=== PATIENT | female | born 1965 | race Caucasian/White ===

== ENCOUNTER 2017-12-25 10:58 | Inpatient (IN) | payer OTHER, MEDICARE ==
[~2017-12-25] VITALS: Ht 162.6 cm; Wt 72.6 kg
[~2017-12-25 10:58] MED LIST: AMBIEN (MONOGRAP5 MG PO; ASPIRIN CHILDRE81 MG PO; ATORVASTATIN CA10 M1 PO; ATORVASTATIN CA10 MG PO; BENTYL10 M1 PO; DIFLUCAN150 M1 PO; DIFLUCAN150 MG PO; DILTIAZEM 24HR240 MG PO; DILTIAZEM HCL120 M2 PO; DOCUSATE SODIU100 MG PO; ESTRACE1 MG PO; FENOFIBRATE145 M1 PO; FISH OIL CONCEN1 SGL PO; HYDROMORPHONE HC2 MG PO; IBU800 MG PO; KEFLEX500 MG PO; LEVEMIR 10100 UNITS/ SC; LEVEMIR100 UNIT/1 SC; LIDOCAINE1 EACH TOP; LISINOPRIL-HCT1 EAC1 PO; LISINOPRIL-HYDR1 TA1 PO; LORAZEPAM1 MG PO; NAPROSYN 500 M500 MG PO; NOVOLIN R1000 UNIT2 SC; NOVOLOG100 U/ML SC; NOVOLOG100 UNIT/2 SC; OMEGA-3 300 MG-1 SGL PO; OXYCODONE5 M1 PO; PERCOCET 325 MG1 TA2 PO; PERCOCET 325 MG1 TAB PO; PERCOCET 5-3251 EACH PO; PROAIR HFA8.5 GM INH; PROVENTIL INHALER INH; SOMA 350MG TAB350 MG PO; TRAMADOL50 MG PO; TRICOR 145 MG145 MG PO; VALIUM 10 MG. T10 MG PO; VALIUM5 M1 PO; VANCOMYCIN 11000 MG IV; ZOFRAN ODT4 M1 SL
[2017-12-25 13:06] LABS: ABSOLUTE BASOPHIL COUNT 0.1 /CUMM (0.0-0.2); ABSOLUTE EOSINOPHIL COUNT 0.2 /CUMM (0.0-0.7); ABSOLUTE GRANULOCYTE CT 21.1 /CUMM (1.4-6.5); ABSOLUTE LYMPH COUNT 2.8 /CUMM (1.2-3.4); ABSOLUTE MONOCYTE COUNT 1.2 /CUMM (0.10-0.60); BASOPHIL % 0.2 % (0.0-2.0); EOSINOPHIL % 0.7 % (0-5); GRANULOCYTE % 83.2 % (42.2-75.2); HEMATOCRIT 35.8 % (37-47); MEAN CORPUSCULAR HGB 30.2 PG (27.0-31.0); MEAN CORPUSCULAR HGB CONC 34.6 G/DL (33.0-37.0); MEAN CORPUSCULAR VOLUME 87.3 FL (81.0-99.0); PLATELET COUNT 513 /CUMM (130-400); RBC DISTRIBUTION WIDTH 12.5 % (11.5-14.5); WHITE BLOOD CELL COUNT 25.4 /CUMM (4.8-10.8)
--- NOTE | 2017-12-25 15:45 | CT SCAN REPORT ---
CT NECK WITH CONTRAST CLINICAL INFORMATION: Left jaw and neck swelling. Tenderness to palpation. COMPARISON: None available. TECHNIQUE: Multidetector CT acquisition of the neck was obtained following the administration of 95 mL of Optiray 320 intravenous contrast without complication. Multiplanar reformats were acquired and utilized for image interpretation. FINDINGS: Infiltration of the fat of the left perimaxillary, left perimandibular, and submental soft tissues compatible with cellulitis. There are no discrete fluid collections to suggest abscess. There are a few focal areas of skin thickening within the left face on image 33 of series 4 and the skin overlying the left mandible on image 49 of series 4 that can be correlated with direct visual inspection for a source of infection. Nonpathologic size criteria lymph nodes within the suprahyoid and infrahyoid neck. The parotid glands are homogeneous in attenuation. The submandibular glands are normal. The thyroid gland is normal. No contour abnormality or pathologic enhancement is seen within the oral cavity or pharyngeal mucosal space. No retropharyngeal fluid collection is seen. The laryngeal structures are normal. The parapharyngeal fat is preserved. The carotid sheath vasculature opacify normally. The superior mediastinum is unremarkable. The lung apices are clear. The mastoid air cells and visualized portions of the paranasal sinuses are well-aerated. Postoperative changes following ACDF at the C4-C7 levels. Multilevel hypertrophic facet arthropathy. Congenital T3-T4 fusion. The imaged portions of the brain parenchyma are unremarkable. IMPRESSION: Imaging findings compatible with left perimaxillary, left perimandibular, and submental cellulitis. There are no discrete fluid collections to suggest abscess. There are a few focal areas of skin thickening within the left face on image 33 of series 4 and the skin overlying the left mandible on image 49 of series 4 that can be correlated with direct visual inspection for a source of infection.
--- NOTE | 2017-12-25 15:57 | ED GENERAL ADULT ---
History of Present Illness General Chief Complaint: General Adult Stated Complaint: FACIAL SWELLING Source: patient Exam Limitations: no limitations Vital Signs & Intake/Output Vital Signs & Intake/Output Vital Signs Date Time Temp Pulse Resp B/P B/P Pulse O2 O2 Flow FiO2 Mean Ox Delivery Rate 12/25 2212 98.3 81 22 144/86 100 Room Air 12/25 2133 100 Room Air 12/25 1907 99.8 76 20 140/80 100 Room Air 12/25 1610 78 18 133/81 99 Room Air 12/25 1551 Room Air 12/25 1102 98.6 95 18 115/71 98 Room Air Allergies Coded Allergies: codeine (Severe, ANAPHYLAXIS 05/08/17) morphine (Severe, ANAPHYLAXIS 05/08/17) Reconcile Medications Albuterol Sulfate (Proair Hfa) 90 MCG HFA.AER.AD 2 PUF INH Q4-6 PRN PRN SHORTNESS OF BREATH (Reported) Atorvastatin Calcium 10 MG TABLET 1 TAB PO 1700 CHOLESTEROL (Reported) Dicyclomine Hydrochloride (Bentyl) 10 MG CAPSULE 1 CAP PO TID PRN abdominal pain Diltiazem HCl (Diltiazem 24HR ER) 240 MG CAP.ER.24H 1 CAP PO DAILY HEART ( Reported) Estradiol (Estrace) 1 MG TABLET 1 TAB PO DAILY HRT (Reported) Fenofibrate Nanocrystallized (Fenofibrate) 145 MG TABLET 1 TAB PO DAILY LIPIDS (Reported) Fluconazole (Diflucan) 150 MG TABLET 1 TAB PO ONCE CANDIDIASIS Insulin Aspart (Novolog) (Unknown Strength) VIAL (Unknown Dose) SC TIDAC DIABETES (Reported) Insulin Detemir (Levemir) 100 UNIT/ML VIAL 20 UNITS SC QPM DIABETES (Reported ) Lidocaine 5 % ADH..PATCH 1 PAT TOP DAILY PAIN (Reported) Lisinopril/Hydrochlorothiazide (Lisinopril-Hctz 20-25 MG Tab) 20 MG-25 MG TABLET 1 TAB PO DAILY BP (Reported) Ondansetron (Zofran Odt) 4 MG TAB.RAPDIS 1 TAB SL TID PRN nausea Ondansetron (Zofran Odt) 4 MG TAB.RAPDIS 1 TAB SL TID PRN nausea Oxycodone HCl/Acetaminophen (Percocet 5-325 MG Tablet) 5 MG-325 MG TABLET 1 TAB PO BID PRN headache Triage Note: 52 YO FEMALE TO TRIAGE FOR EVAL OF L SIDED FACIAL SWELLING. REPORTS "I GET FREQUENT STAFF INFECTIONS" DENIES ANY PAIN INSIDE MOUTH/TEETH. REPORTS HAS BEEN SWOLLEN X2 DAYS. AFEBRILE Triage Nurses Notes Reviewed? yes HPI: This is a 52-year-old female with history of insulin controlled diabetes, obesity, hypertension, hepatitis C, cervical cancer status post atherectomy, asthma, presenting the emergency department with 1 day of left-sided facial swelling. Patient states she has had similar swelling in the past and it has been attributed to staph infection. She complains of severe pain in the left side of her cheek and left lower jaw. She denies any intraoral lesions or in. She endorses loss of appetite and nausea without vomiting. She has had no fever. She denies shortness of breath or difficulty swallowing or managing her airway. She had labs prior my evaluation was found to have significant leukocytosis. Also underwent CT neck which showed cellulitis but no obvious drainable collection. Past History Travel History Traveled to [place] past 21 day No Medical History Any Pertinent Medical History? see below for history Neurological: NONE EENT: NONE Cardiovascular: hypertension, NSTEMI Respiratory: asthma, SLEEP APNEA Gastrointestinal: NONE Hepatic: hepatitis C Renal: NONE Musculoskeletal: chronic back pain, S/P LAMINECTOMY LYMPHEDEMA Psychiatric: NONE Endocrine: diabetes Blood Disorders: NONE Cancer(s): cervical cancer, hodgkins lymphoma, vaginal cancer FIRST AID DIRECTOR/Reproductive: NONE History of MRSA: No History of VRE: No History of CDIFF: No Surgical History Surgical History: cholecystectomy Psychosocial History Who do you live with Mother Services at Home None What is your primary language Macanese Tobacco Use: Never used Family History Family History, If Any: Relation not specified for: FH: heart attack Hx Contributory? No Review of Systems Review of Systems Constitutional: Reports: malaise. EENTM: Reports: see HPI. Respiratory: Reports: no symptoms. Cardiovascular: Reports: no symptoms. GI: Reports: nausea. Genitourinary: Reports: no symptoms. Musculoskeletal: Reports: no symptoms. Skin: Reports: see HPI. Neurological/Psychological: Reports: no symptoms. Hematologic/Endocrine: Reports: no symptoms. Physical Exam Physical Exam General Appearance: well developed/nourished, no apparent distress, anxious Eyes: Bilateral: normal appearance. Ears, Nose, Throat: normal pharynx, normal ENT inspection Neck: normal inspection, supple, full range of motion Respiratory: normal breath sounds, chest non-tender, no respiratory distress Cardiovascular: regular rate/rhythm Gastrointestinal: normal bowel sounds, soft, non-tender Back: normal inspection, normal range of motion Extremities: normal inspection, normal capillary refill, normal range of motion, no edema Neurologic/Psych: no motor/sensory deficits, awake, alert, oriented x 3 Skin: rash Comments: Patient with significant swelling and tenderness to the left lower cheek, pain also to left submandibular area. No intraoral lesions or abscesses noted. Airways clear. Core Measures ACS in differential dx? No CVA/TIA Diagnosis: No Sepsis Present: No Sepsis Focused Exam Completed? No Progress Differential Diagnoses I considered the following diagnoses in my evaluation of the patient: Appears to be cellulitis, could be secondary to staph or strep first other microbiologic agent. Low suspicion for acute abscess given negative CT scan. Some concern for systemic inflammatory response although no vital sign changes at this time. Low suspicion for acute allergic reaction. No metabolic derangement on labs apart from hyperglycemia. Plan of Care: Orders Procedure Date/time Status Full Liquid Diet 12/26 B Active CBC WITHOUT DIFFERENTIAL 12/26 0600 Active BASIC ELECTROLYTES PLUS BUN&CR 12/26 0600 Active Weight 12/25 2114 Active Vital Signs 12/25 2114 Active Teach/Educate 12/25 2114 Active Pain Treatment and Response 12/25 2114 Active Nutritional Intake, Monitor 12/25 2114 Active Isolation 12/25 2114 Active Intake & Output 12/25 2114 Active Patient Care Conference 12/25 2114 Active Activity/Ambulation 12/25 2114 Active ACTIVE SURVEILLANCE NARES 12/25 2050 Active Pathway - chart 12/25 1806 Active Pathway - chart 12/25 1735 Active Patient Data 12/25 1657 Active Admit to inpatient 12/25 1634 Active Code Status 12/25 1634 Active Intake & Output 12/25 1551 Active FingerStick- Glucose 12/25 1249 Active BLOOD CULTURE 12/25 1249 Active COMPREHENSIVE METABOLIC PANEL 12/25 1249 Complete CBC WITHOUT DIFFERENTIAL 12/25 1249 Complete House Staff 12/25 UNK Active VTE Mechanical Prophylaxis 12/25 UNK Active Vital Signs 12/25 UNK Active Current Medications Sig/Cindy Start time Last Medication Dose Stop Time Status Admin Atorvastatin Calcium 10 MG 1700 12/26 1700 AC (Lipitor) Enoxaparin Sodium 40 MG DAILY 12/26 0900 AC (Lovenox) Estradiol 1 MG DAILY 12/26 0900 AC (Estrace) Fenofibrate 145 MG DAILY 12/26 0900 AC (Tricor) Insulin Aspart 0 TIDAC 12/26 0800 AC (NovoLOG) Ampicillin Sodium/ 1,500 MG Q6 12/26 0600 AC Sulbactam Sodium (Unasyn) Sodium Chloride 100 ML (Normal Saline 0.9%) Acetaminophen 1,000 MG Q6P PRN 12/25 2245 AC (Ofirmev) N/A 1 UNIT (No Carrier) Hydromorphone HCl 0.4 MG Q4P PRN 12/253 AC 12/25 (Dilaudid) 225 Gabapentin 300 MG QPM 12/25 2099 AC 12/25 (Neurontin) 2116 Insulin Detemir 20 UNITS QPM 12/25 2099 AC 12/25 (Levemir) 2116 Diltiazem HCl 240 MG DAILY 12/25 175 AC 12/25 (Cardizem CD) 2116 Laboratory Tests 12/25/17 1257: Anion Gap 12, Estimated GFR > 60, BUN/Creatinine Ratio 21.4, Glucose 451 H, Calcium 9.7, Total Bilirubin 0.2, AST 12 L, ALT 24, Alkaline Phosphatase 79, Total Protein 6.4, Albumin 4.0, Globulin 2.4, Albumin/Globulin Ratio 1.7, CBC w Diff MAN DIFF ORDERED, RBC 4.10 L, MCV 87.3, MCH 30.2, MCHC 34.6, RDW 12.5, MPV 7.0 L, Gran % 83.2 H, Lymphocytes % 11.1 L, Monocytes % 4.8, Eosinophils % 0.7, Basophils % 0.2, Absolute Granulocytes 21.1 H, Absolute Lymphocytes 2.8, Absolute Monocytes 1.2 H, Absolute Eosinophils 0.2, Absolute Basophils 0.1, Platelet Estimate VERIFIED BY SMEAR, Anisocytosis 1+ Microbiology 12/25 2300 UPPER RESP: Surveillance Culture - RECD 12/25 1304 BLOOD: Blood Culture - RECD 12/25 1257 BLOOD: Blood Culture - RECD Given the patient is insulin-dependent diabetic, has significant leukocytosis and difficulty tolerating p.o., will start IV antibiotics, admit to inpatient side. We will treat pain and administer IV fluids as well. Initial ED EKG: none Departure Departure Time of Disposition: 1640 Disposition: STILL A PATIENT Condition: Stable Clinical Impression Primary Impression: Facial cellulitis Referrals: Patient Has No Primary Care Dr (PCP/Family) Departure Forms: Customer Survey General Discharge Information Admission Note Spoke With: Hunter Carrera MD Documentation of Exam: Documentation of any treatments & extenuating circumstances including Concerns Regarding Discharge (functional status, medication knowledge or non-compliance, living conditions, etc.) that warrant an admission rather than observation: Patient will require IV antibiotics for significant facial cellulitis in setting of insulin-dependent diabetes. Will also require IV hydration, given poor p.o. intake. Not amenable to p.o. antibiotics at this time. Will need advancement of diet while inpatient. Will also need control of hyperglycemia. Critical Care Note Critical Care Note Critical Care Time: non-applicable ED Attending Observation Initial Observation Note: I have seen and personally examined CAROLIN JAY on 12/25/17 at 1642. I agree with the current emergency department documentation. The disposition (admission or discharge) is uncertain at this time, she needs a period of observation for the following reason(s): The ED Nurse caring for this patient has been personally informed as to what the patient is being observed for.
--- NOTE | 2017-12-25 17:01 | History & Physical ---
See Addendum Paul Vivas 12/25/17 1701: General Information and HPI MD Statement: I have seen and personally examined CAROLIN JAY and documented this H&P. The patient is a 52 year old F who presented with a patient stated chief complaint of facial swelling. Source of Information: patient Exam Limitations: no limitations History of Present Illness: 52-year old female with history of insulin controlled diabetes, obesity, hypertension, hepatitis C, cervical cancer status post hysterectomy, asthma who presents the emergency department with 1 day of left-sided facial swelling. Patient says she previous incidences of swelling to the infections like this over the past half year, including on her face and in her armpit. She denies any lesions inside her mouth or inside her ear. Also appetite and nausea with no vomiting. She has no history of fever with this presumed infection. On laboratory evaluation she was found to have significant leukocytosis. A CT neck showed a non-drainable cellulitis. Allergies/Medications Allergies: Coded Allergies: codeine (Severe, ANAPHYLAXIS 05/08/17) morphine (Severe, ANAPHYLAXIS 05/08/17) Compliance With Home Meds: GOOD Past History Travel History Traveled to [place] past 21 day No Medical History Neurological: NONE EENT: NONE Cardiovascular: hypertension, NSTEMI Respiratory: asthma, SLEEP APNEA Gastrointestinal: NONE Hepatic: hepatitis C Renal: NONE Musculoskeletal: chronic back pain, S/P LAMINECTOMY LYMPHEDEMA Psychiatric: NONE Endocrine: diabetes Blood Disorders: NONE Cancer(s): cervical cancer, hodgkins lymphoma, vaginal cancer EMT I/99/Reproductive: NONE History of MRSA: No History of VRE: No History of CDIFF: No Surgical History Surgical History: cholecystectomy Past Family/Social History Family History Relations & Conditions if any Relation not specified for: FH: heart attack Psychosocial History Services at Home: None Review of Systems Review of Systems Constitutional: Reports: no symptoms. EENTM: Reports: ear pain ("fullness"). Skin: Reports: erythema (left cheek), lumps. Exam & Diagnostic Data Last 24 Hrs of Vital Signs/I&O Vital Signs Date Time Temp Pulse Resp B/P B/P Pulse O2 O2 Flow FiO2 Mean Ox Delivery Rate 12/25 1907 99.8 76 20 140/80 100 Room Air 12/25 1610 78 18 133/81 99 Room Air 12/25 1551 Room Air 12/25 1102 98.6 95 18 115/71 98 Room Air Intake & Output 12/25 1600 / 0800 12/25 0000 Intake Total Output Total Balance Patient 160 lb Weight Weight Reported by Patient Measurement Method Physical Exam General Appearance Alert, Oriented X3, Cooperative, Moderate Distress Skin No Rashes, No Breakdown, erythema on left cheek/mandible Skin Temp/Moisture Exam: Warm/Dry HEENT PERRLA, EOMI, left side of face visibly enlarged Neck No JVD, No thryomegaly, tender to palpation Lymphatic Cervical nl Cardiovascular Regular Rate, Normal S1, Normal S2, No Murmurs Lungs Clear to Auscultation, Normal Air Movement Abdomen Soft, No Tenderness, No Hepatospenomegaly Neurological Normal Speech (dysarthric speech), Normal Tone, Sensation Intact Extremities No Clubbing, No Cyanosis, No Edema, Normal Pulses Assessment/Plan Assessment: 52-year-old female with history of insulin controlled diabetes, obesity, hypertension, hepatitis C, cervical cancer status post hysterectomy, asthma presenting to the emergency department with left-sided facial swelling. Problem list/plan: Left-sided facial swelling -Start antibiotics - Unasyn, Vancomycin -control pain per protocol Chronic conditions (Asthma, back pain, htn, hep c) -contintue home medications As Ranked By This Provider Problem List: 1. Facial cellulitis Core Measures/Misc (02/26) Acute Coronary Syndrome ACS Diagnosis: No Congestive Heart Failure Congestive Heart Failure Diagnosis No Cerebrovascular Accident CVA/TIA Diagnosis: No VTE (View Protocol) VTE Risk Factors Cancer/chemo/othr therapy No Mechanical VTE Prophylaxis d/t N/A MechProphylax Ordered No VTE Pharm Prophylaxis d/t NA PharmProphylax ordered Sepsis (View protocol) Sepsis Present: No If YES complete Sepsis Event Note If YES complete Sepsis Event Note Chris Miller 12/25/17 2019: General Information and HPI Allergies/Medications Home Med list Albuterol Sulfate (Proair Hfa) 90 MCG HFA.AER.AD 2 PUF INH Q4-6 PRN PRN SHORTNESS OF BREATH (Reported) Atorvastatin Calcium 10 MG TABLET 1 TAB PO 1700 CHOLESTEROL (Reported) Dicyclomine Hydrochloride (Bentyl) 10 MG CAPSULE 1 CAP PO TID PRN abdominal pain Diltiazem HCl (Diltiazem 24HR ER) 240 MG CAP.ER.24H 1 CAP PO DAILY HEART ( Reported) Estradiol (Estrace) 1 MG TABLET 1 TAB PO DAILY HRT (Reported) Fenofibrate Nanocrystallized (Fenofibrate) 145 MG TABLET 1 TAB PO DAILY LIPIDS (Reported) Fluconazole (Diflucan) 150 MG TABLET 1 TAB PO ONCE CANDIDIASIS Insulin Aspart (Novolog) (Unknown Strength) VIAL (Unknown Dose) SC TIDAC DIABETES (Reported) Insulin Detemir (Levemir) 100 UNIT/ML VIAL 20 UNITS SC QPM DIABETES (Reported ) Lidocaine 5 % ADH..PATCH 1 PAT TOP DAILY PAIN (Reported) Lisinopril/Hydrochlorothiazide (Lisinopril-Hctz 20-25 MG Tab) 20 MG-25 MG TABLET 1 TAB PO DAILY BP (Reported) Ondansetron (Zofran Odt) 4 MG TAB.RAPDIS 1 TAB SL TID PRN nausea Ondansetron (Zofran Odt) 4 MG TAB.RAPDIS 1 TAB SL TID PRN nausea Oxycodone HCl/Acetaminophen (Percocet 5-325 MG Tablet) 5 MG-325 MG TABLET 1 TAB PO BID PRN headache Core Measures/Misc (02/26) Sepsis (View protocol) If YES complete Sepsis Event Note If YES complete Sepsis Event Note Resident Review Statement Resident Statement: examined this patient, discussed with director internal control, agreed with director internal control, reviewed EMR data (avail) Other Findings: 52-year-old woman past medical history significant for chronic neck shoulder and lower back pain, anterior cervical discectomy discectomy 2012 with hardware and fusion, hypertension, history of lymphoma, cervical or vaginal cancer status post hysterectomy 2005 with chemo and radiation, insulin-dependent diabetes mellitus, history of gallstone pancreatitis, history of hepatitis A and hepatitis C and anxiety coming in for evaluation of left facial swelling of one day duration. Patient has had multiple recurrent abscesses that were mostly treated at [facility]. She states that she always grew staph and not MRSA. Her most recent episode was about a month ago which was over her left eye which has resolved completely at this time. Review of systems pertinent for left ear fullness, difficulty opening mouth completely and eating solids. Denies any fever, chills, chest pain, shortness of breath, eye pain, recent tooth infection, any discharge from swelling. Vitals afebrile, blood pressure 140 x 80, 99% on room air. Examination pertinent for left sided cheek swelling with no discharge in the inside of the mouth noted however patient was not able to open the mouth completely. Rest of examination was unremarkable. Labs significant leukocytosis with left shift, chronic hyponatremia, CT scan of neck with IV contrast significant for left perimaxillary, left perimandibular, and submental cellulitis. No discrete fluid collections to suggest abscess. Problem list: Left facial cellulitis Chronic back pain Hypertension Insulin-dependent diabetes mellitus Plan: Admit to general medicine floor, vitals per protocol Was given IV Clindamycin,given history of I&D of her abcess, will cover for MRSA with one-time of vancomycin, follow-up nasal surveillance for MRSA We will continue broad coverage with IV Unasyn tomorrow, ID consult in a.m. Please obtain records from [facility] specifically if there is any organisms that were grown for micro Accu-Cheks, basal insulin, NovoLog sliding scale Continue home meds pending how she swallows Unable to check [place] as website is down DVT prophylaxis with Lovenox Full liquid diet for now Full code Debi PARRA,Hunter 12/25/17 2322: Core Measures/Misc (02/26) Sepsis (View protocol) If YES complete Sepsis Event Note If YES complete Sepsis Event Note Attending MD Review Statement Attending Statement Attending MD Statement: examined this patient, discuss w/resident/PA/COMMERCIAL FINANCE ANALYST, agreed w/resident/PA/COMMERCIAL FINANCE ANALYST, discussed with family, discussed with nursing, reviewed images , amended to note Attending Assessment/Plan: The patient was seen and discussed with house staff, nursing and case management. She is a 52 yo female withh/o DM2, obesity, HTN, hepatitis C. She began noticin facial of ther right foot. She stated she had very recently been admitted to [facility]. She noted significant increase inhome so I can call. Impresion: #Pneumonia- patient is doing wwll today. Plan: Continue to monitor on Tele todayand increased Neck: supple Ext: no edema or tenderness Neuro: generallized weakness. Labs/tests:
[2017-12-25] MEDS ORDERED: LEVEMIR100 UNIT/1 SC (18:01)
[2017-12-25 19:07] VITALS: BP 140/80
[2017-12-25 22:12] VITALS: BP 144/86
--- NOTE | 2017-12-25 23:54 | Admission Certification ---
Admission Certification Certification Statement - As attending physician, I certify that at the time of - admission, based on clinical presentation, severity of - symptoms, need for further diagnostic testing and - therapeutic interventions, and risk of adverse outcomes - without in-hospital treatment, in my clinical assessment, - this patient requires an acute hospital stay for a minimum - of two nights or longer. I have also considered psychsocial - factors such as support system, advanced age, financial - issues, cognitive issues, and failed out-patient treatments, - past re-admission history, safety of patient, and lack of - compliance as applicable. Specific rationale supporting this admission is: The patient presents with left facial/neck swelling and tenderness c/w cellulitis (?staph). Needs admission for IV antibiotics and close follow-up. If develops abscess may need drainage.
[2017-12-26 03:10] VITALS: BP 122/78
[2017-12-26 06:59] VITALS: BP 116/66
--- NOTE | 2017-12-26 07:16 | PN- Housestaff ---
Paul Vivas 12/26/17 0716: Subjective Follow-up For: Facial swelling and pain Complaints: pain scale (0-10) (8/10) Subjective: Patient was seen and examined at the bedside. Patient states that she had increasing pain overnight, including pain directed into her left ear which awoke her from sleep at 3 AM. Patient states she feels like the swelling and pain has progressed and gotten worse since yesterday. Was insistent on showing pictures of prior infections face. Denied shortness of breath, chest pains, abdominal pain, fever, chills, sweats. Review of Systems Constitutional: Denies: chills, diaphoresis, fever, unexplained weight loss. EENTM: Reports: see HPI, ear pain, ear redness, throat swelling, mouth pain. Cardiovascular: Reports: no symptoms. Respiratory: Reports: no symptoms. Gastrointestinal: Reports: no symptoms. Musculoskeletal: Reports: no symptoms. Skin: Reports: see HPI, change in skin color, erythema. Neurological/Psychological: Reports: no symptoms. Objective Last 24 Hrs of Vital Signs/I&O Vital Signs Date Time Temp Pulse Resp B/P B/P Pulse O2 O2 Flow FiO2 Mean Ox Delivery Rate 12/26 1459 99.1 85 20 144/84 98 Room Air 12/26 0659 99.4 75 20 116/66 97 Room Air 12/26 0310 99.0 77 20 122/78 98 Room Air 12/25 2212 98.3 81 22 144/86 100 Room Air 12/25 2133 100 Room Air Intake & Output 12/26 1600 12/26 0800 12/26 0000 Intake Total 1750 600 480 Output Total Balance 1750 600 480 Intake, IV 250 120 Intake, Oral 1500 480 480 Patient 160 lb Weight Weight Reported by Patient Measurement Method Physical Exam General Appearance: Alert, Oriented X3, Cooperative, Moderate Distress Skin: erythematous swelling on left cheek Skin Temp/Moisture Exam: Warm/Dry HEENT: PERRLA, EOMI, red, swollen cheek on left side of face; apparent "pimple" deena on chin Neck: Supple, unable to assess left side due to patient's pain Lymphatic: Axillary nl, Cervical nl Cardiovascular: Regular Rate, Normal S1, Normal S2, No Murmurs Lungs: Clear to Auscultation, Normal Air Movement Abdomen: Soft, No Tenderness, No Hepatospenomegaly Neurological: dysarthric speech due to mass effect Extremities: No Clubbing, No Cyanosis, No Edema Current Medications: Current Medications Sig/Cindy Start time Last Medication Dose Route Stop Time Status Admin Acetaminophen 1,000 MG Q6P PRN 12/25 2245 AC 12/26 N/A 1 UNIT IV 1703 Acetaminophen 1,000 MG ONCE ONE 12/25 2045 DC 12/25 N/A 1 UNIT IV 12/25 2059 2241 Ampicillin Sodium/ 1,500 MG Q6 12/26 0600 DC 12/26 Sulbactam Sodium IV 0527 Sodium Chloride 100 ML Atorvastatin Calcium 10 MG 1700 12/26 1700 AC 12/26 PO 1703 Clindamycin 600 MG IQ8 12/26 1600 AC 12/26 Dextrose/Water 50 ML IV 1704 Diltiazem HCl 240 MG DAILY 12/25 1759 AC 12/26 PO 0840 Enoxaparin Sodium 40 MG DAILY 12/26 0900 AC 12/26 SC 0840 Estradiol 1 MG DAILY 12/26 0900 AC 12/26 PO 0840 Fenofibrate 145 MG DAILY 12/26 0900 AC 12/26 PO 0840 Gabapentin 300 MG QPM 12/25 2100 12/25 PO 2117 Hydromorphone HCl 1 MG ONCE ONE 12/26 1045 DC 12/26 IV 12/26 1046 1131 Hydromorphone HCl 0.4 MG ONCE ONE 12/26 0545 DC 12/26 IV 12/26 0546 0605 Hydromorphone HCl 0.4 MG Q4P PRN 12/25 2223 AC 12/26 IV 1820 Hydromorphone HCl 0.5 MG Q5 PRN 12/25 1815 DC 12/25 IV 1905 Insulin Aspart 0 TIDAC 12/26 0800 AC 12/26 SC 1349 Insulin Detemir 20 UNITS QPM 12/25 2100 12/25 SC 2117 Lactobacillus 1 CAP BID 12/26 1038 AC 12/26 Acidophilus PO 1349 Melatonin 5 MG AT BEDTIME NEED.. 12/26 0915 AC PO Melatonin 5 MG ONCE ONE 12/26 0600 DC PO 12/26 0601 Patient Medication 1 ED ONE ONE 12/26 1715 DC 12/26 Teaching ED 12/26 1716 1723 Vancomycin HCl 1,000 MG Q12 12/26 2200 Sodium Chloride 250 ML IV Vancomycin HCl 1,000 MG ONCE ONE 12/26 1145 DC 12/26 Sodium Chloride 250 ML IV 12/26 1244 1349 Last 24 Hrs of Lab/Jj Results Last 24 Hrs of Labs/Mics: Laboratory Tests 12/26/17 0641: Anion Gap 10, Estimated GFR > 60, BUN/Creatinine Ratio 20.0, Hemoglobin A1c 9.6 H, CBC w Diff NO MAN DIFF REQ, RBC 3.65 L, MCV 88.4, MCH 29.8, MCHC 33.7, RDW 12.9, MPV 7.3 L, Gran % 70.5, Lymphocytes % 20.4 L, Monocytes % 6.2, Eosinophils % 2.4, Basophils % 0.5, Absolute Granulocytes 13.1 H, Absolute Lymphocytes 3.8 H, Absolute Monocytes 1.2 H, Absolute Eosinophils 0.4, Absolute Basophils 0.1 Microbiology 12/25 2300 UPPER RESP: Surveillance Culture - RECD Orders Radiology Findings: Head/neck CT w/ contrast showed worsening left facial cellulitis, more prominent soft tissue thickening invovling left gingival buccal mucosa that may reflect developing phlegmon without a drainable abscess. Assessment/Plan Assessment: 52-year old female with history of insulin controlled diabetes, obesity, hypertension, hepatitis C, cervical cancer status post hysterectomy, asthma who presents the emergency department with 1 day of left-sided facial swelling. Plan/problem list: Facial/neck cellulitis Hypertension DM 2 Hyperlipidemia COPD DVT prophylaxis: Subcu heparin ALPS Full liquid diet, no diabetic add-ons Patient is full code Problem List: 1. Facial cellulitis 2. Diabetes Pain Ratin Pain Location: 10 Pain Goal: Pain 4 or less Pain Plan: Dilaudid Tomorrow's Labs & Rationales: cbc, bep to follow infection ChidiJonathan 12/26/17 1306: Attending MD Review Statement Attending Statement Attending MD Statement: examined this patient, discuss w/resident/PA/WEB ENGINEER, agreed w/resident/PA/WEB ENGINEER, discussed with family, reviewed EMR data (avail), discussed with nursing, discussed with case mgmt, reviewed images, amended to note Attending Assessment/Plan: Patient admitted here with facial cellulitis and neck cellulitis. Initial CT neck did not show evidence of abscess or drainable collection. Patient received vancomycin , clindamycin in ER. Patient with worsening of facial cellultiis. Repeat CT scan obtained which is suggestive of worsening cellulitis with some phlegmon but no drainable abscess again. ID consulted and ENT Dr Raza stat informed. Plan for broad spectrum abx for now. #HTN-cont home meds #DM- on insulin. Follow glucoscans and continue Insulin. #Hyperlipidemia- on Atorvastatin/Fenofibrate. #COPD- stable, bronchodilator as needed.
[2017-12-26 07:52] LABS: ABSOLUTE BASOPHIL COUNT 0.1 /CUMM (0.0-0.2); ABSOLUTE EOSINOPHIL COUNT 0.4 /CUMM (0.0-0.7); ABSOLUTE GRANULOCYTE CT 13.1 /CUMM (1.4-6.5); ABSOLUTE LYMPH COUNT 3.8 /CUMM (1.2-3.4); ABSOLUTE MONOCYTE COUNT 1.2 /CUMM (0.10-0.60); BASOPHIL % 0.5 % (0.0-2.0); EOSINOPHIL % 2.4 % (0-5); GRANULOCYTE % 70.5 % (42.2-75.2); HEMATOCRIT 32.2 % (37-47); MEAN CORPUSCULAR HGB 29.8 PG (27.0-31.0); MEAN CORPUSCULAR HGB CONC 33.7 G/DL (33.0-37.0); MEAN CORPUSCULAR VOLUME 88.4 FL (81.0-99.0); MEAN PLATELET VOLUME 7.3 FL (7.4-10.4); PLATELET COUNT 455 /CUMM (130-400); RBC DISTRIBUTION WIDTH 12.9 % (11.5-14.5); RED BLOOD CELL CT 3.65 /CUMM (4.20-5.40); WHITE BLOOD CELL COUNT 18.5 /CUMM (4.8-10.8)
--- NOTE | 2017-12-26 12:59 | CT SCAN REPORT ---
EXAMINATION: CT OF THE HEAD WITH AND WITHOUT CONTRAST CT OF THE NECK WITH CONTRAST CLINICAL INFORMATION: Facial cellulitis. COMPARISON: Neck CT 12/25/2017. TECHNIQUE: Multidetector CT acquisition of the head is obtained without contrast. Next, multidetector CT acquisition of the head and neck obtained following the administration of 95 mL of Optiray 320 intravenous contrast without complication. FINDINGS: Worsening inflammatory changes within the left facial soft tissues at the level of the buccal space, the left simone-maxillary soft tissues, the left perimandibular soft tissues, the left periparotid soft tissues, and the submental soft tissues. The fat planes within the floor of mouth are preserved. As discussed on the previous examination there is focal skin thickening within the left face on image 42 of series 2 and image 59 of series 2 that can be correlated with direct visual inspection. There is soft tissue thickening within the left left gingival buccal mucosal complex soft tissues on image 58 of series 2 that may reflect focal phlegmon without a discrete peripherally enhancing fluid collection in this location. Nonpathologic size criteria lymph nodes within the suprahyoid and infrahyoid neck. The parotid glands are homogeneous in attenuation. The submandibular glands are normal. The thyroid gland is normal. No contour abnormality or pathologic enhancement is seen within the oral cavity or pharyngeal mucosal space. No retropharyngeal fluid collection is seen. The laryngeal structures are normal. The parapharyngeal fat is preserved. The carotid sheath vasculature opacify normally. The superior mediastinum is unremarkable. The lung apices are clear. The mastoid air cells and visualized portions of the paranasal sinuses are well-aerated. Postoperative changes following ACDF at the C4-C7 levels. Multilevel hypertrophic facet arthropathy. Congenital T3-T4 fusion. The imaged portions of the brain parenchyma are unremarkable. There is no intracranial hemorrhage, hydrocephalus, extra-axial surface collection, midline shift, or other herniation pattern. Hancock to white matter differentiation is diffusely maintained without evidence of an evolved acute territorial infarct. The basilar cisterns are preserved. IMPRESSION: - Worsening left facial cellulitis in comparison to yesterday's neck CT. There is also more prominent soft tissue thickening involving the soft tissues of the left gingival buccal mucosal complex best seen on image 56 of series 2 that may reflect developing phlegmon without a drainable abscess identified. 2 sites of focal skin thickening on image 42 of series 2 and image 60 of series 2 are stable and can be correlated with direct visual inspection. - The fat planes in the floor of mouth are intact and there is no retropharyngeal cellulitis. - No acute intracranial findings.
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
[2017-12-26 14:59] VITALS: BP 144/84
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
[2017-12-26 22:50] VITALS: BP 144/94
[2017-12-27 06:00] VITALS: BP 132/60
--- NOTE | 2017-12-27 07:05 | PN- Housestaff ---
Paul Vivas 12/27/17 0705: Subjective Follow-up For: Facial cellulitis Complaints: pain scale (0-10) (5/10) Subjective: Patient was seen and examined at the bedside. Subjectively the patient says she feels much better today, and feels like the swelling in her face has subsided. She had many questions related to future treatment. Still experiencing pain in her face/cheek, but otherwise in good spirits. Review of Systems Constitutional: Reports: no symptoms. EENTM: Reports: ear pain. Denies: blurred vision, visual changes, eye pain, eye drainage, ear discharge. Cardiovascular: Reports: no symptoms. Respiratory: Reports: no symptoms. Gastrointestinal: Reports: no symptoms. Musculoskeletal: Reports: no symptoms. Objective Last 24 Hrs of Vital Signs/I&O Vital Signs Date Time Temp Pulse Resp B/P B/P Pulse O2 O2 Flow FiO2 Mean Ox Delivery Rate 12/27 2200 98.5 75 20 150/85 97 Room Air 12/27 1600 Room Air 12/27 1437 99.2 84 20 134/86 98 12/27 0800 97 Nasal Cannula 12/27 0600 98.4 71 18 132/60 95 Room Air Intake & Output 12/27 1600 12/27 0800 12/27 0000 Intake Total 600 500 350 Output Total Balance 600 500 350 Intake, IV 300 150 Intake, Oral 600 200 200 Physical Exam General Appearance: Alert, Oriented X3, Cooperative, Mild Distress Skin: No Rashes, No Breakdown, facial swelling decreased from yesterday, still red, hot and tender Skin Temp/Moisture Exam: Warm/Dry HEENT: PERRLA, EOMI, noticeable erythema and swelling on left cheek Neck: Supple, No JVD, No thryomegaly, neck appears less inflamed from yesterday Lymphatic: Axillary nl, Cervical nl Cardiovascular: Regular Rate, Normal S1, Normal S2, No Murmurs Lungs: Clear to Auscultation, Normal Air Movement Abdomen: Soft, No Tenderness, No Hepatospenomegaly Neurological: Normal Speech (less dysarthric), Strength at 5/5 X4 Ext, Normal Tone, Sensation Intact Extremities: No Clubbing, No Cyanosis, No Edema Current Medications: Current Medications Sig/Cindy Start time Last Medication Dose Route Stop Time Status Admin Acetaminophen 1,000 MG .STK-MED ONE 12/27 0956 DC IV 12/27 0957 Acetaminophen 1,000 MG .STK-MED ONE 12/27 0007 DC IV 12/27 0008 Acetaminophen 1,000 MG Q6P PRN 12/25 2245 12/27 N/A 1 UNIT IV 2239 Atorvastatin Calcium 10 MG 1700 12/26 1700 AC 12/27 PO 1643 Diltiazem HCl 240 MG DAILY 12/25 1759 AC 12/27 PO 0803 Docusate Sodium 100 MG DAILY 12/27 0830 DC 12/27 PO 12/27 0831 1005 Enoxaparin Sodium 40 MG DAILY 12/26 09 12/27 SC 0803 Estradiol 1 MG DAILY 12/26 0900 AC 12/27 PO 0803 Fenofibrate 145 MG DAILY 12/26 09 AC 12/27 PO 0803 Gabapentin 300 MG QPM 12/25 2100 AC 12/27 PO 2044 Hydromorphone HCl 0.4 MG Q4P PRN 12/25 2223 AC 12/27 IV 2048 Insulin Aspart 0 TIDAC 12/26 0800 12/27 SC 1720 Insulin Detemir 20 UNITS QPM 12/25 2100 12/27 SC 2051 Lactobacillus 1 CAP BID 12/26 1038 AC 12/27 Acidophilus PO 2044 Melatonin 5 MG AT BEDTIME NEED.. 12/26 0915 AC 12/27 PO 223 Omeprazole 40 MG DAILY AC 12/27 0830 AC 12/27 PO 1005 Vancomycin HCl 1,000 MG Q12 12/26 2200 AC 12/27 Sodium Chloride 250 ML IV 2045 Last 24 Hrs of Lab/Jj Results Last 24 Hrs of Labs/Mics: Laboratory Tests 12/27/17 0820: Anion Gap 11, Estimated GFR > 60, BUN/Creatinine Ratio 18.0, CBC w Diff NO MAN DIFF REQ, RBC 4.01 L, MCV 87.5, MCH 29.6, MCHC 33.9, RDW 12.6, MPV 7.2 L, Gran % 79.0 H, Lymphocytes % 13.7 L, Monocytes % 4.6, Eosinophils % 2.2, Basophils % 0.5, Absolute Granulocytes 11.7 H, Absolute Lymphocytes 2.0, Absolute Monocytes 0.7 H, Absolute Eosinophils 0.3, Absolute Basophils 0.1 Microbiology 12/27 1699 HEAD/NECK: Head/Neck Culture - RECD 07/18 1700 HEAD/NECK: Gram Stain - RECD Assessment/Plan Assessment: 52-year old female with history of insulin controlled diabetes, obesity, hypertension, hepatitis C, cervical cancer status post hysterectomy, asthma who presents the emergency department with 1 day of left-sided facial swelling. Patient is improved today. Per ID discussion, trend WBC until <=10. Plan/problem list: Facial/neck cellulitis -Per patient request and ID note; furuncle was attempted lanced. minimal pus removed, but sent to lab for cultures if possible Hypertension DM 2 Hyperlipidemia COPD DVT prophylaxis: Subcu heparin ALPS Full liquid diet, no diabetic add-ons Patient is full code Problem List: 1. Facial cellulitis 2. Diabetes Pain Ratin Pain Location: left face Pain Goal: pain free Pain Plan: Dilaudid for pain Tomorrow's Labs & Rationales: cbc and bep to track infecton Jonathan Murillo 12/27/17 1149: Attending MD Review Statement Attending Statement Attending MD Statement: examined this patient, discuss w/resident/PA/KETTLE WORKER, agreed w/resident/PA/KETTLE WORKER, discussed with family, reviewed EMR data (avail), discussed with nursing, discussed with case mgmt, reviewed images, amended to note Attending Assessment/Plan: Patient admitted here with facial cellulitis and neck cellulitis. ENT and ID consulted. Afebrile. Patient on iv vancomycin. Patient have considerable improvement on physical exam with decreased swelling and redness. Blood culture remain negative so far. #HTN-cont home meds #DM- on insulin. Follow glucoscans and continue Insulin. #Hyperlipidemia- on Atorvastatin/Fenofibrate. #COPD- stable, bronchodilator as needed. Referral to outpatient rhemuatology.
[2017-12-27 09:00] LABS: ABSOLUTE BASOPHIL COUNT 0.1 /CUMM (0.0-0.2); ABSOLUTE EOSINOPHIL COUNT 0.3 /CUMM (0.0-0.7); ABSOLUTE GRANULOCYTE CT 11.7 /CUMM (1.4-6.5); ABSOLUTE MONOCYTE COUNT 0.7 /CUMM (0.10-0.60); BASOPHIL % 0.5 % (0.0-2.0); EOSINOPHIL % 2.2 % (0-5); MEAN CORPUSCULAR HGB 29.6 PG (27.0-31.0); MEAN CORPUSCULAR HGB CONC 33.9 G/DL (33.0-37.0); MEAN CORPUSCULAR VOLUME 87.5 FL (81.0-99.0); MEAN PLATELET VOLUME 7.2 FL (7.4-10.4); PLATELET COUNT 493 /CUMM (130-400); RBC DISTRIBUTION WIDTH 12.6 % (11.5-14.5); RED BLOOD CELL CT 4.01 /CUMM (4.20-5.40); WHITE BLOOD CELL COUNT 14.9 /CUMM (4.8-10.8)
--- NOTE | 2017-12-27 11:09 | PN- Infect Dx ---
Subjective Subjective: Afebrile. She feels improved with decreased swelling and decreased pain in the left face. She is requesting that the furuncle on her left chin be lanced. Objective Last 24 Hrs of Vital Signs/I&O Vital Signs Date Time Temp Pulse Resp B/P B/P Pulse O2 O2 Flow FiO2 Mean Ox Delivery Rate 12/27 0600 98.4 71 18 132/60 95 Room Air 12/26 2250 98.6 75 18 144/94 97 Room Air 12/26 1459 99.1 85 20 144/84 98 Room Air Intake & Output 12/27 1600 12/27 0800 12/27 0000 Intake Total 500 350 Output Total Balance 500 350 Intake, IV 300 150 Intake, Oral 200 200 Physical Exam Other Physical Findings: She appears more comfortable in no acute distress HEENT decreased swelling, induration and tenderness in the left cheek, with minimal erythema; furuncle on the left chin persists Results Last 24 Hours of Lab Results: Laboratory Tests 12/27 0820 Chemistry Sodium (137 - 145 mmol/L) 139 Potassium (3.5 - 5.1 mmol/L) 4.6 Chloride (98 - 107 mmol/L) 101 Carbon Dioxide (22 - 30 mmol/L) 27 Anion Gap (5 - 16) 11 BUN (7 - 17 mg/dL) 9 Creatinine (0.5 - 1.0 mg/dL) 0.5 Estimated GFR (>60 ml/min) > 60 BUN/Creatinine Ratio (7 - 25 %) 18.0 Hematology CBC w Diff NO MAN DIFF REQ WBC (4.8 - 10.8 /CUMM) 14.9 H RBC (4.20 - 5.40 /CUMM) 4.01 L Hgb (12.0 - 16.0 G/DL) 11.9 L Hct (37 - 47 %) 35.0 L MCV (81.0 - 99.0 FL) 87.5 MCH (27.0 - 31.0 PG) 29.6 MCHC (33.0 - 37.0 G/DL) 33.9 RDW (11.5 - 14.5 %) 12.6 Plt Count (130 - 400 /CUMM) 493 H MPV (7.4 - 10.4 FL) 7.2 L Gran % (42.2 - 75.2 %) 79.0 H Lymphocytes % (20.5 - 51.1 %) 13.7 L Monocytes % (1.7 - 9.3 %) 4.6 Eosinophils % (0 - 5 %) 2.2 Basophils % (0.0 - 2.0 %) 0.5 Absolute Granulocytes (1.4 - 6.5 /CUMM) 11.7 H Absolute Lymphocytes (1.2 - 3.4 /CUMM) 2.0 Absolute Monocytes (0.10 - 0.60 /CUMM) 0.7 H Absolute Eosinophils (0.0 - 0.7 /CUMM) 0.3 Absolute Basophils (0.0 - 0.2 /CUMM) 0.1 Last 24 Hours of Jj Results: Blood cultures x 2 December 25 negative Assessment/Plan ID Impression: Improved, with temperatures remaining normal and white blood cell count decreasing, on Vancomycin Day 2 of treatment for cellulitis of the left cheek, with decreasing inflammation of the cheek. Am concerned about MRSA, given her history of recurrent cellulitis, though apparently no previous cultures have been obtained.. Aspiration of the furuncle on her chin can be attempted and this may provide an organism, which would help guide treatment. Suggestion: 1. Would attempt aspiration of the furuncle on her left chin 2. Continue Vancomycin pending above
[2017-12-27 14:37] VITALS: BP 134/86
[2017-12-27 22:00] VITALS: BP 150/85
[2017-12-28 06:30] VITALS: BP 138/80
--- NOTE | 2017-12-28 06:54 | PN- Housestaff ---
Paul Vivas 12/28/17 0653: Subjective Follow-up For: Facial cellulitis Complaints: pain scale (0-10) (8) Subjective: Seen and examined at the bedside. No acute events overnight. Patient subjectively states that she feels worse since yesterday, noting that she has increased pain under her eyelid and subjectively increased swelling of her lips and lower eyelid. Patient also states that her pain has been poorly controlled since yesterday. Plan was discussed with her, patient stated that she would request that Dr. Santos been in charge of her infectious disease, as she is comfortable with him and he is treated her in the past. Review of Systems Constitutional: Reports: no symptoms. EENTM: Reports: eye pain, ear pain, throat pain, mouth pain. Cardiovascular: Reports: no symptoms. Respiratory: Reports: no symptoms. Gastrointestinal: Reports: no symptoms. Skin: Reports: see HPI. Objective Last 24 Hrs of Vital Signs/I&O Vital Signs Date Time Temp Pulse Resp B/P B/P Pulse O2 O2 Flow FiO2 Mean Ox Delivery Rate 12/28 0630 98.4 81 20 138/80 95 Room Air 12/27 2200 98.5 75 20 150/85 97 Room Air 12/27 1600 Room Air 12/27 1437 99.2 84 20 134/86 98 Intake & Output 12/28 1600 12/28 0800 12/28 0000 Intake Total 350 1090 Output Total Balance 350 1090 Intake, IV 250 Intake, Oral 100 1090 Physical Exam General Appearance: Alert, Oriented X3, Cooperative, Moderate Distress Skin: swelling and erythema on left face Skin Temp/Moisture Exam: Warm/Dry HEENT: Atraumatic, PERRLA, EOMI Neck: Supple, No JVD, No thryomegaly Cardiovascular: Regular Rate, Normal S1, Normal S2, No Murmurs Lungs: Clear to Auscultation, Normal Air Movement Abdomen: Soft, No Tenderness, No Hepatospenomegaly Neurological: Strength at 5/5 X4 Ext, Normal Tone, Sensation Intact, Cranial Nerves 3-12 NL, dysarthria resultant from facial swelling Extremities: No Clubbing, No Cyanosis, No Edema Assessment/Plan Assessment: 52-year old female with history of insulin controlled diabetes, obesity, hypertension, hepatitis C, cervical cancer status post hysterectomy, asthma who presents the emergency department with 1 day of left-sided facial swelling. Patient is improved today. Per ID discussion, trend WBC until <=10. Plan/problem list: Facial/neck cellulitis results of cultures time dose of tramadol this AM -Per patient request and ID note; furuncle was attempted lanced. minimal pus removed, but sent to lab for cultures if possible -Culture growing Staph aureus; sensitivities pending Hypertension DM 2 Hyperlipidemia COPD DVT prophylaxis: Subcu heparin ALPS Consistent carbohydrate 2 for diabetes; patient selecting soft foods for ease of swallowing Patient is full code Problem List: 1. Facial cellulitis Pain Ratin Pain Location: Left face Pain Goal: Pain 4 or less Pain Plan: Dilaudid 0.4 mg q4hrs, + one time tramadol this am Tomorrow's Labs & Rationales: cbc to follow infection/inflammation no bep necessary if today's bep returns wnl Jonathan Murillo 12/28/17 1100: Attending MD Review Statement Attending Statement Attending MD Statement: examined this patient, discuss w/resident/PA/LOADER SEMICONDUCTOR DIES, agreed w/resident/PA/LOADER SEMICONDUCTOR DIES, discussed with family, reviewed EMR data (avail), discussed with nursing, discussed with case mgmt, reviewed images, amended to note Attending Assessment/Plan: Pateint with improvement in her leukocytosis on iv vancomycin however her clinical exam is same or slightly worse as compared to yesterday. She is using cold compresses on her face and appears to be anxiuos. She has no fever overnight. She is requesting ID follow up. Will inform ID. Conitnue with iv vancomycin and consider imaging if ok with ID.
[2017-12-28 08:45] LABS: ABSOLUTE BASOPHIL COUNT 0.1 /CUMM (0.0-0.2); ABSOLUTE EOSINOPHIL COUNT 0.4 /CUMM (0.0-0.7); ABSOLUTE GRANULOCYTE CT 8.8 /CUMM (1.4-6.5); ABSOLUTE LYMPH COUNT 2.2 /CUMM (1.2-3.4); ABSOLUTE MONOCYTE COUNT 0.5 /CUMM (0.10-0.60); BASOPHIL % 0.4 % (0.0-2.0); EOSINOPHIL % 3.5 % (0-5); GRANULOCYTE % 73.3 % (42.2-75.2); HEMATOCRIT 36.6 % (37-47); MEAN CORPUSCULAR HGB 29.4 PG (27.0-31.0); MEAN CORPUSCULAR HGB CONC 33.2 G/DL (33.0-37.0); MEAN CORPUSCULAR VOLUME 88.6 FL (81.0-99.0); MEAN PLATELET VOLUME 7.7 FL (7.4-10.4); PLATELET COUNT 473 /CUMM (130-400); RBC DISTRIBUTION WIDTH 12.8 % (11.5-14.5); RED BLOOD CELL CT 4.13 /CUMM (4.20-5.40)
--- NOTE | 2017-12-28 13:02 | PN- Infect Dx ---
Subjective Subjective: Afebrile. She complains of increased swelling in the left periorbital area and increased induration in the left mandibular area. Objective Last 24 Hrs of Vital Signs/I&O Vital Signs Date Time Temp Pulse Resp B/P B/P Pulse O2 O2 Flow FiO2 Mean Ox Delivery Rate 12/28 0630 98.4 81 20 138/80 95 Room Air 12/27 2200 98.5 75 20 150/85 97 Room Air 12/27 1600 Room Air 12/27 1437 99.2 84 20 134/86 98 Intake & Output 12/28 1600 12/28 0800 12/28 0000 Intake Total 350 1090 Output Total Balance 350 1090 Intake, IV 250 Intake, Oral 100 1090 Physical Exam Other Physical Findings: She appears overall more comfortable in no acute distress HEENT minimal left periorbital edema; induration over the left mandible, tender to palpation, with persistent swelling in the left cheek Neck supple with mild left cervical adenopathy, slightly tender to palpation Results Last 24 Hours of Lab Results: Laboratory Tests 12/28 617 Chemistry Sodium (137 - 145 mmol/L) 136 L Potassium (3.5 - 5.1 mmol/L) 5.0 Chloride (98 - 107 mmol/L) 97 L Carbon Dioxide (22 - 30 mmol/L) 28 Anion Gap (5 - 16) 11 BUN (7 - 17 mg/dL) 14 Creatinine (0.5 - 1.0 mg/dL) 0.6 Estimated GFR (>60 ml/min) > 60 BUN/Creatinine Ratio (7 - 25 %) 23.3 Hematology CBC w Diff NO MAN DIFF REQ WBC (4.8 - 10.8 /CUMM) 12.0 H RBC (4.20 - 5.40 /CUMM) 4.13 L Hgb (12.0 - 16.0 G/DL) 12.1 Hct (37 - 47 %) 36.6 L MCV (81.0 - 99.0 FL) 88.6 MCH (27.0 - 31.0 PG) 29.4 MCHC (33.0 - 37.0 G/DL) 33.2 RDW (11.5 - 14.5 %) 12.8 Plt Count (130 - 400 /CUMM) 473 H MPV (7.4 - 10.4 FL) 7.7 Gran % (42.2 - 75.2 %) 73.3 Lymphocytes % (20.5 - 51.1 %) 18.7 L Monocytes % (1.7 - 9.3 %) 4.1 Eosinophils % (0 - 5 %) 3.5 Basophils % (0.0 - 2.0 %) 0.4 Absolute Granulocytes (1.4 - 6.5 /CUMM) 8.8 H Absolute Lymphocytes (1.2 - 3.4 /CUMM) 2.2 Absolute Monocytes (0.10 - 0.60 /CUMM) 0.5 Absolute Eosinophils (0.0 - 0.7 /CUMM) 0.4 Absolute Basophils (0.0 - 0.2 /CUMM) 0.1 Last 24 Hours of Jj Results: Blood cultures x 2 December 25 negative Furuncle left chin December 27 positive for Staph aureus Assessment/Plan ID Impression: Overall improved, with temperatures remaining normal and white blood cell count continuing to decrease, on Vancomycin Day 3 of treatment for cellulitis of the left cheek, with persistent inflammation and induration, particularly over the left mandible. The culture of the furuncle is positive for Staph aureus, possibly MRSA, and she should be continued on Vancomycin pending the final culture. Her recent CT scans have been negative for any drainable collection, but if her inflammation persists, she can be reimaged. Suggestion: 1. Follow-up final culture of the furuncle 2. Contact isolation pending above 3. Consider repeat CT of the neck if her inflammation does not continue to improve 4. Continue Vancomycin pending above Talisha Pat MD will be covering until January 01
[2017-12-28 13:59] VITALS: BP 140/80
--- NOTE | 2017-12-28 20:17 | CT SCAN REPORT ---
EXAMINATION: CT SINUS WITH IV CONTRAST CLINICAL INFORMATION: Facial cellulitis. COMPARISON: None TECHNIQUE: Axial images obtained through the facial bones after IV injection of 95 mL Optiray 320. Coronal and sagittal reformatted images are performed at the CT scanner DLP: 587.64 mGy-cm FINDINGS: There is soft tissue swelling at the left side of the face adjacent to the mandible. Edema extends into the subcutaneous tissue. The patient is nearly edental on the left mandible where most of the swelling is, however there is no focal bone lesion. No bone destruction. Would still suspect a dental etiology given the localization of edema related to the mandible. There is no abscess. There is no focal fluid collection. The paranasal sinuses are normally aerated including the left paranasal sinus. The submandibular glands are symmetric and normal. There are prominent lymph nodes at the left side of the face near the angle of the jaw just deep to the platysma. Largest lymph node is measuring about 1 cm in short axis diameter. There are small subcentimeter lymph nodes in the right side the submental region but no bulky adenopathy on the right. IMPRESSION: Soft tissue swelling at the left side of the face related to the mandible without a focal abscess
[2017-12-28 22:22] VITALS: BP 150/70
[2017-12-29 06:46] VITALS: BP 145/73
--- NOTE | 2017-12-29 07:04 | PN- Housestaff ---
Paul Vivas 12/29/17 0703: Subjective Follow-up For: Facial cellulitis Subjective: Patient was seen and examined at the bedside. Subjectively patient is feeling better, says that her pain is better controlled and that her anxiety is under control with the ativan. Continued to have questions about future treatment, unable to answer given the pending susceptibilties. Otherwise no new complaints. Review of Systems Constitutional: Reports: no symptoms. Objective Last 24 Hrs of Vital Signs/I&O Vital Signs Date Time Temp Pulse Resp B/P B/P Pulse O2 O2 Flow FiO2 Mean Ox Delivery Rate 12/29 0646 98.3 74 21 145/73 97 Room Air 12/28 2222 98.4 85 18 150/70 97 Room Air 12/28 1359 98.8 82 20 140/80 98 Room Air Intake & Output 12/29 1600 12/29 0800 12/29 0000 Intake Total 260 590 Output Total Balance 260 590 Intake, IV 20 350 Intake, Oral 240 240 Physical Exam General Appearance: Alert, Oriented X3, Cooperative, No Acute Distress Skin: No Rashes, No Breakdown, erythema and swelling left cheek, improved from yesterday Skin Temp/Moisture Exam: Warm/Dry HEENT: Atraumatic, PERRLA, EOMI Neck: Supple, No JVD, No thryomegaly Lymphatic: Cervical nl Cardiovascular: Regular Rate, Normal S1, Normal S2, No Murmurs Lungs: Clear to Auscultation, Normal Air Movement Abdomen: Soft, No Tenderness, No Hepatospenomegaly Neurological: Normal Speech (decreased dysarthria), Strength at 5/5 X4 Ext, Normal Tone, Sensation Intact Extremities: No Clubbing, No Cyanosis, No Edema Current Medications: Current Medications Sig/Cindy Start time Last Medication Dose Route Stop Time Status Admin Acetaminophen 1,000 MG .STK-MED ONE 12/29 2027 DC IV 12/28 2028 Acetaminophen 1,000 MG .STK-MED ONE 12/28 1257 DC IV 12/28 1258 Acetaminophen 1,000 MG Q6P PRN 12/25 2245 12/28 N/A 1 UNIT IV 2137 Atorvastatin Calcium 10 MG 1700 12/26 1700 AC 12/28 PO 1558 Diltiazem HCl 240 MG DAILY 12/25 1759 AC 12/29 PO 0812 Enoxaparin Sodium 40 MG DAILY 12/26 0900 AC 12/29 SC 0813 Estradiol 1 MG DAILY 12/26 0900 AC 12/29 PO 0812 Fenofibrate 145 MG DAILY 12/26 0900 AC 12/29 PO 0813 Gabapentin 300 MG QPM 12/25 2100 AC 12/28 PO 2024 Hydromorphone HCl 1 MG ONCE ONE 12/28 1015 DC 12/28 IV 12/28 1016 1019 Hydromorphone HCl 0.4 MG Q4P PRN 12/25 2223 AC 12/29 IV 0636 Insulin Aspart 0 TIDAC 12/26 0800 AC 12/29 SC 0814 Insulin Detemir 20 UNITS QPM 12/25 2100 AC 12/28 SC 2137 Ketorolac 30 MG .STK-MED ONE 12/28 1038 DC Tromethamine IV 12/28 1039 Ketorolac 30 MG ONCE ONE 12/28 0845 DC 12/28 Tromethamine IV 12/28 0846 0840 Lactobacillus 1 CAP BID 12/26 1038 12/29 Acidophilus PO 0813 Lorazepam 0.5 MG TID 12/28 1400 DC 12/28 PO 01/04 1359 1303 Lorazepam 0.5 MG TID PRN 12/28 1400 AC 12/29 PO 01/04 1355 0636 Lorazepam 0.5 MG .STK-MED ONE 12/28 1038 DC PO 12/28 1039 Lorazepam 0.5 MG ONCE ONE 12/28 0845 DC 12/28 PO 12/28 0846 0840 Melatonin 5 MG AT BEDTIME NEED.. 12/26 0915 AC 12/29 PO 0052 Omeprazole 40 MG DAILY AC 12/27 0830 AC 12/29 PO 0637 Patient Medication 1 ED ONE ONE 12/28 1800 DC Teaching ED 12/28 1801 Vancomycin HCl 1,000 MG Q12 12/26 2200 AC 12/29 Sodium Chloride 250 ML IV 0813 Last 24 Hrs of Lab/Jj Results Last 24 Hrs of Labs/Mics: Laboratory Tests 12/29/17 0840: CBC w Diff Pending, WBC Pending, RBC Pending, Hgb Pending, Hct Pending, MCV Pending, MCH Pending, MCHC Pending, RDW Pending, Plt Count Pending, MPV Pending Assessment/Plan Assessment: 52-year old female with history of insulin controlled diabetes, obesity, hypertension, hepatitis C, cervical cancer status post hysterectomy, asthma who presents the emergency department with 1 day of left-sided facial swelling. Patient is improved today. Per ID discussion, trend WBC until <=10. Plan/problem list: Facial/neck cellulitis results of culture sensitivities time dose of tramadol this AM -Per patient request and ID note; furuncle was attempted lanced. minimal pus removed, but sent to lab for cultures if possible -Face culture ulture growing Staph aureus; sensitivities pending Hypertension DM 2 Hyperlipidemia COPD DVT prophylaxis: Subcu heparin ALPS Consistent carbohydrate 2 for diabetes; patient selecting soft foods for ease of swallowing Patient is full code Problem List: 1. Facial cellulitis Pain Ratin Pain Location: Left face Pain Goal: Pain 4 or less Pain Plan: Dilaudid and tylenol Tomorrow's Labs & Rationales: Jonathan Dorman 12/29/17 1022: Attending MD Review Statement Attending Statement Attending MD Statement: examined this patient, discuss w/resident/PA/BRUSH CLEANER, agreed w/resident/PA/BRUSH CLEANER, discussed with family, reviewed EMR data (avail), discussed with nursing, discussed with case mgmt, reviewed images, amended to note Attending Assessment/Plan: Patient with overall clinical improvement in her leukocytosis on iv vancomycin however her clinical exam is improved since yesterday. She has no fever overnight. Continue with iv vancomycin and sinus imaging did not show acute pathology with full aeration and no opacity reported. Follow wound culture sensitivity and Transition to oral antibitoics tomorrow. Anticipate discharge tomorrow on PO pain and abx medications.
[2017-12-29 09:15] LABS: ABSOLUTE BASOPHIL COUNT 0.1 /CUMM (0.0-0.2); ABSOLUTE EOSINOPHIL COUNT 0.4 /CUMM (0.0-0.7); ABSOLUTE GRANULOCYTE CT 5.6 /CUMM (1.4-6.5); ABSOLUTE LYMPH COUNT 1.8 /CUMM (1.2-3.4); ABSOLUTE MONOCYTE COUNT 0.4 /CUMM (0.10-0.60); BASOPHIL % 0.7 % (0.0-2.0); EOSINOPHIL % 4.6 % (0-5); GRANULOCYTE % 67.6 % (42.2-75.2); MEAN CORPUSCULAR HGB 29.9 PG (27.0-31.0); MEAN CORPUSCULAR VOLUME 87.7 FL (81.0-99.0); MEAN PLATELET VOLUME 6.8 FL (7.4-10.4); PLATELET COUNT 561 /CUMM (130-400); RBC DISTRIBUTION WIDTH 12.6 % (11.5-14.5); WHITE BLOOD CELL COUNT 8.3 /CUMM (4.8-10.8)
[2017-12-29] MEDS ORDERED: ATIVAN0.5 M1 PO (10:08)
--- NOTE | 2017-12-29 10:08 | Discharge Summary ---
Visit Information Visit Dates Admission Date: 12/25/17 Discharge Date: 12/29/2017 Hospital Course Course Attending Physician: Jonathan Murillo MD Primary Care Physician: Patient Has No Primary Care Dr; referred to Dr. Cohen Consulting Request: 1 Consulting Specialty: Infectious Disease Consulting Physician: Darin Santos MD Reason for Consult: Management of antibiotics Consulting Request: 2 Consulting Specialty: Otorhinolaryngology Consulting Physician: Jennifer Seymour MD Reason for Consult: Management of facial soft tissue infection Hospital Course: Ms. Gauthier is a 52-year old female with history of insulin controlled diabetes, obesity, hypertension, hepatitis C, cervical cancer status post hysterectomy, and asthma who presented to the emergency department with 1 day of left-sided facial swelling. She was admitted to general medicine for suspected facial cellulitis, which was confirmed by CT scan. It was determine that there was no drainable collection that needed I&D. The patient was tried on Unasyn, ceftriaxone and vancomycin, and ultimately treated for 4 days with vancomycin. On HD 3 a furuncle on the patient's face was lanced in order to obtain culture, which grew MSSA. Antibiotics were switched to Augmentin and the patient was discharged to home self care. On admission, Vitals:T 98.6, P 95, R 18, BP 115/71, O2 98% RA Physical exam General Appearance Alert, Oriented X3, Cooperative, Moderate Distress Skin No Rashes, No Breakdown, erythema on left cheek/mandible Skin Temp/Moisture Exam: Warm/Dry HEENT PERRLA, EOMI, left side of face visibly enlarged, no oral lesions Neck No JVD, No thryomegaly, tender to palpation Lymphatic Cervical nl Cardiovascular Regular Rate, Normal S1, Normal S2, No Murmurs Lungs Clear to Auscultation, Normal Air Movement Abdomen Soft, No Tenderness, No Hepatospenomegaly Neurological Normal Speech (dysarthric speech), Normal Tone, Sensation Intact Extremities No Clubbing, No Cyanosis, No Edema, Normal Pulses -CBC: leukocytosis with left shift -BMP: chronic hyponatremia -CT: compatible with left perimaxillary perimandibular and submental cellulitis -EKG: NSR w/o significant ST-T abnormalities. -Interventions in ER:IV fluids (NS), ceftriaxone, vancomycin Problem list/Assessment: Plan/problem list: Facial/neck cellulitis time dose of tramadol this AM -Per patient request and ID note; furuncle was attempted lanced. minimal pus removed, but sent to lab for culture -Face culture ulture growing methicillin sensitive Staph aureus Hypertension DM 2 Hyperlipidemia COPD DVT prophylaxis: Subcu heparin and ALPS Consistent carbohydrate 2 for diabetes; patient selected soft foods for ease of swallowing Patient is full code Allergies: Coded Allergies: codeine (Severe, ANAPHYLAXIS 05/08/17) morphine (Severe, ANAPHYLAXIS 05/08/17) Pertinent Lab Results: SERVICE DATE: 12/25/17 EXAM TYPE: CAT - CT NECK W IV CONTRAST IMPRESSION: Imaging findings compatible with left perimaxillary, left perimandibular, and submental cellulitis. There are no discrete fluid collections to suggest abscess. There are a few focal areas of skin thickening within the left face on image 33 of series 4 and the skin overlying the left mandible on image 49 of series 4 that can be correlated with direct visual inspection for a source of infection. SERVICE DATE: 12/26/17 EXAM TYPE: CAT - CT HEAD W&WO IV CONTRAST; CT NECK W IV CONTRAST IMPRESSION: - Worsening left facial cellulitis in comparison to yesterday's neck CT. There is also more prominent soft tissue thickening involving the soft tissues of the left gingival buccal mucosal complex best seen on image 56 of series 2 that may reflect developing phlegmon without a drainable abscess identified. 2 sites of focal skin thickening on image 42 of series 2 and image 60 of series 2 are stable and can be correlated with direct visual inspection. - The fat planes in the floor of mouth are intact and there is no retropharyngeal cellulitis. - No acute intracranial findings. SERVICE DATE: 12/28/17- EXAM TYPE: CAT - CT FACE/SINUS WITH CONTRAST IMPRESSION: Soft tissue swelling at the left side of the face related to the mandible without a focal abscess Disposition Summary Disposition Principal Diagnosis: Facial cellulitis Additional Diagnosis: Diabetes Type II, Hypertention, Hyperlipidemia, COPD Discharge Disposition: home or self care Discharge Instructions General Discharge Information Code Status: Full Code Patient's Diet: As tolerated Patient's Activity: As tolerated Follow-Up Instructions/Appts: - Please follow up with your new primary care physician Dr. Cohen within 1-2 weeks of discharge. Inform your primary care physician of this admission to [facility]. - Continue your current medications per discharge instructions. - Please watch for these problems: Fever, Chills, Nausea, Vomiting, Shortness of Breath, Productive Cough, Chest Pain/Discomfort, Abdominal Pain, Active Bleeding or Bloody urine/stool. -A referral to Dr. Marcus (Rheumatology) has been made for you; please call to schedule an appointment within the next six weeks. Medications at Discharge Discharge Medications: Stop taking the following medications: Oxycodone HCl/Acetaminophen (Percocet 5-325 MG Tablet) 5 MG-325 MG TABLET ORAL TWICE DAILY as needed for headache Qty = 6 Continue taking these medications: Estradiol (Estrace) 1 MG TABLET 1 Tablet ORAL DAILY Albuterol Sulfate (Proair Hfa) 90 MCG HFA.AER.AD 2 Puff Inhale through mouth EVERY 4-6 HOURS NEEDED as needed for SHORTNESS OF BREATH Lisinopril/Hydrochlorothiazide (Lisinopril-Hctz 20-25 MG Tab) 20 MG-25 MG TABLET 1 Tablet ORAL DAILY Diltiazem HCl (Diltiazem 24HR ER) 240 MG CAP.ER.24H 1 Capsule ORAL DAILY Insulin Aspart (Novolog) (Unknown Strength) VIAL Unknown Dose SC 3 TIMES DAILY BEFORE MEALS Atorvastatin Calcium (Atorvastatin Calcium) 10 MG TABLET 1 Tablet ORAL 5 PM Fenofibrate Nanocrystallized (Fenofibrate) 145 MG TABLET 1 Tablet ORAL DAILY Lidocaine (Lidocaine) 5 % ADH..PATCH 1 Patch On the skin DAILY Qty = 30 Ondansetron (Zofran Odt) 4 MG TAB.RAPDIS 1 Tablet SUBLINGUAL THREE TIMES DAILY as needed for nausea Qty = 10 Fluconazole (Diflucan) 150 MG TABLET 1 Tablet ORAL GIVE ONCE Qty = 1 Ondansetron (Zofran Odt) 4 MG TAB.RAPDIS 1 Tablet SUBLINGUAL THREE TIMES DAILY as needed for nausea Qty = 10 Dicyclomine Hydrochloride (Bentyl) 10 MG CAPSULE 1 Capsule ORAL THREE TIMES DAILY as needed for abdominal pain Qty = 21 Insulin Detemir (Levemir) 100 UNIT/ML VIAL 20 Units SC Every night Qty = 30 Start taking the following new medications: Amoxicillin/Clavulanate Potass (Amox-Clav 875-125 MG Tablet) 875 MG-125 MG TABLET 1 Tablet ORAL TWICE DAILY Qty = 14 No Refills Instructions: . Oxycodone HCl/Acetaminophen (Percocet 5-325 MG Tablet) 5 MG-325 MG TABLET 1 Tablet ORAL TWICE DAILY as needed for PAIN Qty = 6 No Refills Copies To: Noel PARRA,Ben Marcus MD,Be Oliveira
--- NOTE | 2017-12-29 10:53 | Patient Discharge Instructions ---
Discharge Instructions General Discharge Information Special Instructions: - Please follow up with your new primary care physician Dr. Cohen within 1-2 weeks of discharge. Inform your primary care physician of this admission to [facility]. - Continue your current medications per discharge instructions. - Please watch for these problems: Fever, Chills, Nausea, Vomiting, Shortness of Breath, Productive Cough, Chest Pain/Discomfort, Abdominal Pain, Active Bleeding or Bloody urine/stool. -A referral to Dr. Marcus (Rheumatology) has been made for you; please call to schedule an appointment within the next six weeks. Diet Continue normal diet: Yes Activity Full Activity/No Limits: Yes Acute Coronary Syndrome Inclusion Criteria At DC or during hospital stay patient has or had the following: ACS DIAGNOSIS No Discharge Core Measures Meds if any: Prescribed or Continued at Discharge Meds if any: NOT Prescribed or Continued at Discharge Congestive Heart Failure Inclusion Criteria At DC or during hospital stay patient has or had the following: CHF DIAGNOSIS No Discharge Core Measures Meds if any: Prescribed or Continued at Discharge Meds if any: NOT Prescribed or Continued at Discharge Cerebrovascular accident Inclusion Criteria At DC or during hospital stay patient has or had the following: CVA/TIA Diagnosis No Discharge Core Measures Meds if any: Prescribed or Continued at Discharge Meds if any: NOT Prescribed or Continued at Discharge Venous thromboembolism Inclusion Criteria VTE Diagnosis No VTE Type NONE VTE Confirmed by (Test) NONE Discharge Core Measures - Per Current guidelines, there needs to be overlap - treatment for the first 5 days of Warfarin therapy. - If discharged on Warfarin prior to 5 days of - overlap therapy, the patient will need to be - assessed for post discharge needs including - *Post discharge parental anticoagulation - *Warfarin and/or parental anticoagulation education - *Follow up date to check INR post discharge At least 5 days overlap therapy as Inpatient No Meds if any: Prescribed or Continued at Discharge Note: Overlap Therapy is Warfarin and Anticoagulant Meds if any: NOT Prescribed or Continued at Discharge
[2017-12-29] MEDS ORDERED: AMOX-CLAV 875-1 EACH PO ×3 (13:34→14:20)
[2017-12-29] MEDS ORDERED: PERCOCET 5-3251 EACH PO (13:46)
[2017-12-29 14:00] VITALS: BP 132/68
== END 2017-12-29 14:53 | DRG 603 ==
LOC: ERH 10:58 → 2NA 16:34 → ERHI 16:34 → 2NA 16:34 → ENRESERV 17:13 → ENTRNSPT 18:07 → EDTRNSPT 18:25 → EDTRNSPTSTS 18:25 → 2NA 18:40 → CMPTRNSPT 18:45 → 2NA 12-26 07:41 → ENPENDDIS 12-29 14:51 → 2NA 12-29 14:53
PROVIDERS: General Practice; Internal Medicine; Physician Assistant
PROC: 0H91XZX Drainage of Face Skin, External Approach, Diagnostic (ICD-10-PCS; principal; 2017-12-27)
DX: L03.211 Cellulitis of face (principal); E87.1 Hypo-osmolality and hyponatremia; I10 Essential (primary) hypertension; G47.30 Sleep apnea, unspecified; Z85.41 Personal history of malignant neoplasm of cervix uteri; Z85.71 Personal history of Hodgkin lymphoma; J45.909 Unspecified asthma, uncomplicated; E66.9 Obesity, unspecified; Z68.27 Body mass index [BMI] 27.0-27.9, adult; I25.2 Old myocardial infarction; Z86.19 Personal history of other infectious and parasitic diseases; E11.42 Type 2 diabetes mellitus with diabetic polyneuropathy; Z79.4 Long term (current) use of insulin; G89.29 Other chronic pain; M54.9 Dorsalgia, unspecified; E78.5 Hyperlipidemia, unspecified; B18.2 Chronic viral hepatitis C; D72.829 Elevated white blood cell count, unspecified; Z88.5 Allergy status to narcotic agent; Z90.49 Acquired absence of other specified parts of digestive tract; Z79.51 Long term (current) use of inhaled steroids; L02.02 Furuncle of face; B95.62 Methicillin resistant Staphylococcus aureus infection as the cause of diseases classified elsewhere; J44.9 Chronic obstructive pulmonary disease, unspecified; F17.210 Nicotine dependence, cigarettes, uncomplicated
CPT/HCPCS: 2NAP; 2NASP; 87184; 36415; 36592; 82436; 87040; 87070; 87147; J0131; J1650; J1885; J3370; J7040

== ENCOUNTER 2018-02-05 13:52 | Emergency (ER) | payer OTHER, MEDICARE ==
[~2018-02-05] VITALS: Ht 162.6 cm; Wt 68.0 kg
[~2018-02-05 13:52] MED LIST changes: +AMOX-CLAV 875-1 EACH PO; +ATIVAN0.5 M1 PO
--- NOTE | 2018-02-05 14:20 | ED CARDIAC/CP/PALPITATIONS ---
History of Present Illness General Chief Complaint: Chest Pain Stated Complaint: CHEST PAIN Source: patient Exam Limitations: no limitations Vital Signs & Intake/Output Vital Signs & Intake/Output Vital Signs Date Time Temp Pulse Resp B/P B/P Pulse O2 O2 Flow FiO2 Mean Ox Delivery Rate 02/05 1833 98.4 70 18 120/68 98 02/05 1550 98.8 86 18 127/66 96 02/05 1447 Room Air Room Air 02/05 1356 98.9 92 20 125/62 96 Room Air Allergies Coded Allergies: codeine (Severe, ANAPHYLAXIS 02/05/18) morphine (Severe, ANAPHYLAXIS 02/05/18) Reconcile Medications Albuterol Sulfate (Proair Hfa) 90 MCG HFA.AER.AD 2 PUF INH Q4-6 PRN PRN SHORTNESS OF BREATH (Reported) Amoxicillin/Clavulanate Potass (Amox-Clav 875-125 MG Tablet) 875 MG-125 MG TABLET 1 TAB PO BID INFECTION . Atorvastatin Calcium 10 MG TABLET 1 TAB PO 1700 CHOLESTEROL (Reported) Cyclobenzaprine HCl 10 MG TABLET 1 TAB PO UNK (Reported) Diltiazem HCl (Diltiazem 24HR ER) 240 MG CAP.ER.24H 1 CAP PO DAILY HEART ( Reported) Estradiol (Estrace) 1 MG TABLET 1 TAB PO DAILY HRT (Reported) Fenofibrate Nanocrystallized (Fenofibrate) 145 MG TABLET 1 TAB PO DAILY LIPIDS (Reported) Fluconazole (Diflucan) 150 MG TABLET 1 TAB PO ONCE CANDIDIASIS Gabapentin 300 MG CAPSULE 1 CAP PO QAM UNK (Reported) Gabapentin (Neurontin) 300 MG CAPSULE 2 CAP PO QPM UNK (Reported) Gabapentin 600 MG TABLET 1 TAB PO TID UNK (Reported) Insulin Aspart (Novolog) (Unknown Strength) VIAL (Unknown Dose) SC TIDAC DIABETES (Reported) Insulin Detemir (Levemir) 100 UNIT/ML VIAL 14 UNITS SC BID DIABETES (Reported ) Insulin Glargine,Hum.rec.anlog (Toujeo Solostar) 300 UNIT/ML (1.5 ML) INSULN.PEN 40 UNITS SC D DM (Reported) Insulin Lispro (Humalog) 100 UNIT/ML VIAL (Unknown Dose) DM (Reported) Lidocaine 5 % ADH..PATCH 1 PAT TOP DAILY PAIN (Reported) Lisinopril/Hydrochlorothiazide (Lisinopril-Hctz 20-25 MG Tab) 20 MG-25 MG TABLET 1 TAB PO DAILY BP (Reported) Meloxicam 7.5 MG TABLET 1 TAB PO DAILY PAIN (Reported) Metformin HCl (Metformin HCl ER) 500 MG TAB.ER.24 1 TAB PO BID DM (Reported) Ondansetron (Zofran Odt) 4 MG TAB.RAPDIS 1 TAB SL TID PRN nausea Ondansetron (Zofran Odt) 4 MG TAB.RAPDIS 1 TAB SL TID PRN nausea Oxycodone HCl/Acetaminophen (Percocet 5-325 MG Tablet) 5 MG-325 MG TABLET 1 TAB PO BID PRN PAIN Triage Nurses Notes Reviewed? yes Onset: Abrupt Duration: hour(s): Timing: multiple episodes today Quality/Severity: severe, sharp, SHOOTING Location: LEFT CHEST Radiation: no radiation HPI: Patient presents for evaluation of chest pain. Patient is describing intermittent episodes that occur multiple times each minute and last for seconds at a time. Patient will occasionally feel dizziness and diaphoresis. Patient was waiting in her doctor's office waiting area when she had an episode prompting the office staff to contact 911. Patient was treated with 4 aspirin and a sublingual nitroglycerin without improvement. Patient experiences shortness of breath and nausea with the episodes. (Tara PARRA,Edgardo Stubbs) Past History Travel History Traveled to [place] past 21 day No Medical History Any Pertinent Medical History? 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 No (Tara PARRA,Edgardo Stubbs) Review of Systems Review of Systems Constitutional: Reports: no symptoms. EENTM: Reports: no symptoms. Respiratory: Reports: no symptoms. Cardiovascular: Reports: see HPI. GI: Reports: no symptoms. Genitourinary: Reports: no symptoms. Musculoskeletal: Reports: no symptoms. Skin: Reports: no symptoms. Neurological/Psychological: Reports: no symptoms. Hematologic/Endocrine: Reports: no symptoms. Immunologic/Allergic: Reports: no symptoms. All Other Systems: Reviewed and Negative (Tara PARRA,Edgardo Stubbs) Physical Exam Physical Exam Cardiovascular: SEE BELOW Comments: Gen.: Well-nourished, well-developed, no acute respiratory distress. Head: Normocephalic, atraumatic. Eyes: Normal inspection bilaterally Ears: Normal inspection bilaterally Nose: Normal inspection Throat/mouth : Moist mucosa Neck: Supple, full range of motion, no goiter Heart: Regular rate and rhythm, no murmurs rubs or gallops Lungs: Clear to auscultation bilaterally with normal air entry Chest: Nontender Back: Normal range of motion Abdomen: Soft, nontender, nondistended, normal bowel sounds Extremities: Normal range of motion grossly, equal radial pulses, no cyanosis clubbing or edema Neurologic: Cranial nerves grossly intact, speech is clear Skin: warm and dry Psychiatric: Calm, cooperative, no apparent delusions or hallucinations Core Measures ACS in differential dx? No CVA/TIA Diagnosis No Sepsis Present: No Sepsis Focused Exam Completed? No (Tara PARRA,Edgardo Stubbs) Progress Differential Diagnosis: costochondritis, musculoskeletal pain, PUD/GERD, ESOPHAGEAL SPASMS Plan of Care: Orders Procedure Date/time Status TROPONIN LEVEL 02/05 1830 Complete EKG 02/05 1830 Active Telemetry/Credit Support Counselor 02/05 1420 Active TROPONIN LEVEL 02/05 1420 Complete MAGNESIUM 02/05 1420 Complete CBC WITHOUT DIFFERENTIAL 02/05 1420 Complete BASIC METABOLIC PANEL 02/05 1420 Complete EKG 02/05 1404 Active Laboratory Tests 02/05/18 1825: Troponin I 0.02 02/05/18 1425: Anion Gap 8, Estimated GFR > 60, BUN/Creatinine Ratio 28.8 H, Glucose 362 H, Calcium 9.5, Magnesium 1.9, Troponin I 0.01, CBC w Diff NO MAN DIFF REQ, RBC 4.31, MCV 85.5, MCH 29.7, MCHC 34.7, RDW 12.3, MPV 7.2 L, Gran % 63.7, Lymphocytes % 28.7, Monocytes % 4.9, Eosinophils % 2.1, Basophils % 0.6, Absolute Granulocytes 8.7 H, Absolute Lymphocytes 3.9 H, Absolute Monocytes 0.7 H, Absolute Eosinophils 0.3, Absolute Basophils 0.1 Initial ED EKG: NSR, rate (84), INVERTED p WAVES INFEROLATERALLY, POOR r-WAVE PROGRESSION Prior EKG: changed (NORMAL p WAVES ON PRIOR) Comments: 02/05/2018 3:26:11 PM patient's case discussed with Dr. Duron who feels that the patient's chest pain presentation is atypical for acute coronary syndrome. He also feels that the clinical presentation isn't very convincing for endocarditis. 02/05/2018 4:21:54 PM I have updated the Sherlyn on her test results. She is requesting her gabapentin for severe diabetic neuropathy pain of the hands and legs. She is also asking if she could have something for pain 2. She is agreeable to a repeat EKG and troponin. 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 (Tara PARRA,Edgardo Stubbs) Departure Departure Condition: Stable Clinical Impression Primary Impression: Atypical chest pain Departure Forms: Customer Survey General Discharge Information (Tara PARRA,Edgardo Stubbs) Departure Disposition: HOME OR SELF CARE Referrals: Patient Has No Primary Care Dr (PCP/Family) Domi PARRA PHD,Tobi Jeffrey Additional Instructions: Please follow up with the heel reducer provided and your regualr doctor. The only thing we can tell you for sure is that you did not have a heart attack at this time. There are any more things that will need to be evaluated on your heart that the heel reducer will do. If you develop pain before seeing the heel reducer, or you have any concerns, please return immediatley to the emergency department. (Sylvester PARRA,Rafy Oliveira) Critical Care Note Critical Care Note Critical Care Time: non-applicable (Tara PARRA,Edgardo Stubbs)
[2018-02-05 14:41] LABS: ABSOLUTE BASOPHIL COUNT 0.1 /CUMM (0.0-0.2); ABSOLUTE EOSINOPHIL COUNT 0.3 /CUMM (0.0-0.7); ABSOLUTE GRANULOCYTE CT 8.7 /CUMM (1.4-6.5); ABSOLUTE LYMPH COUNT 3.9 /CUMM (1.2-3.4); ABSOLUTE MONOCYTE COUNT 0.7 /CUMM (0.10-0.60); BASOPHIL % 0.6 % (0.0-2.0); EOSINOPHIL % 2.1 % (0-5); GRANULOCYTE % 63.7 % (42.2-75.2); HEMATOCRIT 36.8 % (37-47); MEAN CORPUSCULAR HGB 29.7 PG (27.0-31.0); MEAN CORPUSCULAR HGB CONC 34.7 G/DL (33.0-37.0); MEAN CORPUSCULAR VOLUME 85.5 FL (81.0-99.0); MEAN PLATELET VOLUME 7.2 FL (7.4-10.4); PLATELET COUNT 481 /CUMM (130-400); RBC DISTRIBUTION WIDTH 12.3 % (11.5-14.5); RED BLOOD CELL CT 4.31 /CUMM (4.20-5.40); WHITE BLOOD CELL COUNT 13.7 /CUMM (4.8-10.8)
[2018-02-05] MEDS ORDERED: CYCLOBENZAPRINE10 M1 PO (15:12)
[2018-02-05] MEDS ORDERED: GABAPENTIN300 M2 PO (15:13)
[2018-02-05] MEDS ORDERED: NEURONTIN300 M1 PO (15:14)
[2018-02-05] MEDS ORDERED: GABAPENTIN600 M1 PO (15:15)
[2018-02-05] MEDS ORDERED: HUMALOG100 UNIT/2 (15:16)
[2018-02-05] MEDS ORDERED: MELOXICAM7.5 M1 PO (15:18)
[2018-02-05] MEDS ORDERED: METFORMIN HCL500 M2 PO (15:19)
[2018-02-05] MEDS ORDERED: TOUJEO SOL300 UNIT/1 SC (15:20)
--- NOTE | 2018-02-05 15:46 | RADIOLOGY REPORT ---
EXAMINATION: XR CHEST CLINICAL INFORMATION: Effusion, infiltrate chest pain, question widened mediastinum COMPARISON: 08/25/2014 TECHNIQUE: 2 views of the chest were obtained. FINDINGS: Mediastinal contours are felt to be within normal limits. Lung torres are grossly clear. No effusion. The heart size is within normal limits. The hilar structures do not appear enlarged. There is no effusion. IMPRESSION: No convincing evidence for an acute process.
[2018-02-05 20:38] VITALS: BP 160/80
== END 2018-02-05 20:38 ==
LOC: ERH 13:52
PROVIDERS: Emergency Medicine
DX: R07.89 Other chest pain (principal)
CPT/HCPCS: 71046; 93005; 93010; 96361; 96374; 96375; J1200; J1885; J7040